=== PATIENT | male | born 1990 | race Caucasian/White ===

== ENCOUNTER 2021-09-08 03:19 | Emergency (ER) | payer OTHER, SELFPAY ==
[2021-09-08 03:22] VITALS: BP 150/87; PULSE 87; RESP 18; TEMP 36.5; O2SAT 98
[2021-09-08 03:30] VITALS: BP 142/96; PULSE 96; RESP 18; O2SAT 96
[2021-09-08] MEDS: IBUPROFEN 400 MG TABLET 800 MG PO (03:43)
--- NOTE | 2021-09-08 04:08 | ED.EAR ---
HPI - Ear Problem General Chief complaint: Ear Stated complaint: Left ear pain Time Seen by Provider: 09/08/21 03:27 Source: patient Mode of arrival: ambulatory Limitations: no limitations History of Present Illness HPI Narrative: This is a 31 year old male who presents for evaluation of left ear pain. PAtient states he woke up with sharp left ear pain just prior to arrival. He denies runny nose, congestion, ear drainage, or fever. He has not taken anything for pain. He denies recent history of swimming. Related Data Allergies Allergy/AdvReac Type Severity Reaction Status Date / Time chlorcyclizine Allergy Hives Verified 09/08/21 03:20 Review of Systems Review of Systems: All systems reviewed & are unremarkable except as noted in HPI and below Constitutional: Constitutional: Denies chills, Denies fever(s) and Denies weakness ENT: Denies dizziness, Denies epistaxis and Denies nasal congestion Cardiovascular: Cardiovascular: Denies chest pain Respiratory: Respiratory: Denies cough and Denies dyspnea PMFSH Past Medical History Medical History (Updated 09/08/21 @ 04:14 by Elaine Moody MD) Patient denies medical problems Surgical History Surgical History (Updated 09/08/21 @ 04:10 by Elaine Moody MD) No pertinent past surgical history Social History Social History (Updated 09/08/21 @ 04:10 by Elaine Moody MD) Smoking status: Never smoker Exam Const: General: no acute distress and alert Orientation/consciousness: patient oriented x3 HENMT: Head: normocephalic and atraumatic Ears: TM normal on the right, mastoids normal, external ear abnormal auricular tenderness on the left and pain with movement of external ear and TM abnormal erythematous General nose exam: Normal external nose present, Normal nares present and Normal nasal mucous membranes and turbinates present Face and sinus: normal facial exam, sinuses nontender and face symmetric Mouth: Yes Normal oral and palatal mucosa present, Yes lip normal, Yes tongue normal, Yes oropharynx normal and Yes moist mucous membranes Eyes: EOM: EOMs intact bilaterally Resp: Effort & Inspection: normal respiratory effort Skin: General skin exam: normal color Rashes: no rashes Neuro: General: patient oriented x3, moves all extremities and CN's II-XI intact bilaterally Psych: Mental Status: mental status grossly normal Affect: normal affect Course Reevaluation(s) Reevaluation #1: PAtient presents with left ear pain. He has ttP left tragus and movement. The ear canal does appear inflamed. There is exudate along the TM, no definite perforation. PAtient will be placed on ear drops and Oral antibiotics. Date: 09/08/21 Time: 04:12 Vital Signs Vital signs: Vital Signs Temperature 97.7 F 09/08/21 03:22 Pulse Rate 87 09/08/21 03:22 Respiratory Rate 18 09/08/21 03:22 Blood Pressure 150/87 H 09/08/21 03:22 Pulse Oximetry 98 09/08/21 03:22 Temperature 97.7 F 09/08/21 03:22 Pulse Rate 84 09/08/21 04:53 Respiratory Rate 18 09/08/21 04:53 Blood Pressure 140/91 H 09/08/21 04:53 Pulse Oximetry 96 09/08/21 04:53 Medical Decision Making Vital Signs Vital Signs: Vital Signs Temperature 97.7 F 09/08/21 03:22 Pulse Rate 87 09/08/21 03:22 Respiratory Rate 18 09/08/21 03:22 Blood Pressure 150/87 H 09/08/21 03:22 Pulse Oximetry 98 09/08/21 03:22 Temperature 97.7 F 09/08/21 03:22 Pulse Rate 84 09/08/21 04:53 Respiratory Rate 18 09/08/21 04:53 Blood Pressure 140/91 H 09/08/21 04:53 Pulse Oximetry 96 09/08/21 04:53 Discharge Plan Discharge Clinical Impression: Otitis externa Qualifiers: Chronicity: acute Laterality: left Otitis media Qualifiers: Chronicity: acute Laterality: left Recurrence: non-recurrent Patient Disposition: Home, Self-Care Condition: Stable Instructions: Antibiotic Form, Ear Infection (ED) Additional Instructions: Take ant
[2021-09-08 04:53] VITALS: BP 140/91; PULSE 84; RESP 18; O2SAT 96
== END 2021-09-08 04:51 | disposition home or self-care (01) ==
LOC: ANHED 04:28
PROVIDERS: Emergency Provider General Practice
DX: H60.502 Unspecified acute noninfective otitis externa, left ear (principal)
CPT/HCPCS: 99283; A9270